=== PATIENT | female | born 1985 | race Caucasian/White ===

== ENCOUNTER → 2023-09-30 15:14 | Outpatient (REF) | payer OTHER, SELFPAY | LOC: HWRAD 15:14 | PROVIDERS: ATTENDING PHYSICIAN Physician Assistant Medical | DX: J11.1 Influenza due to unidentified influenza virus with other respiratory manifestations (principal) | CPT/HCPCS: 71046 ==

== ENCOUNTER → 2024-04-08 17:35 | Outpatient (REF) | payer OTHER, SELFPAY | LOC: MRI 3T 17:35 | PROVIDERS: ATTENDING PHYSICIAN Electrodiagnostic Medicine; FAMILY PHYSICIAN Physician Assistant Medical | DX: G35 Multiple sclerosis (principal) | CPT/HCPCS: 72157; A9575 ==

== ENCOUNTER → 2024-05-10 19:11 | Outpatient (REF) | payer OTHER, SELFPAY | LOC: MRI 19:11 | PROVIDERS: ATTENDING PHYSICIAN Electrodiagnostic Medicine; FAMILY PHYSICIAN Physician Assistant Medical | DX: G35 Multiple sclerosis (principal) | CPT/HCPCS: 70551; 72141 ==

== ENCOUNTER 2025-05-02 10:38 | Emergency (ER) | payer OTHER, SELFPAY ==
[2025-05-02 10:40] VITALS: BP 178/95
--- NOTE | 2025-05-02 11:57 | ED.GENMED ---
History of Present Illness
General
Chief Complaint: Back Pain
Source: patient
Exam Limitations: none
Time Seen by Provider: 05/02/25 11:27
Nursing documentation reviewed up to this point in time: agreed with
History of Present Illness
History of Present Illness:
Patient is a 39-year-old female who presents emergency department for evaluation of left flank pain. She started feeling unwell on Friday including urinary frequency as well as body aches and left lower back pain. She was seen at urgent care and
diagnosed with a UTI/possible kidney infection and started on a course of ciprofloxacin. Patient states that she has had improvement in her urinary symptoms, however today she started to feel �lousy' again. She has persistent pain in the left
flank/left lower back which she describes as a constant �ache'.
She has not had any fevers today. No nausea, vomiting, hematuria. She denies any abnormal vaginal bleeding or discharge. No concern for STDs. No chest pain or shortness of breath.
Past History
Past History
ED Past Medical History: Other (MS presumably relapsing remitting, Numbness left hand)
ED Past Surgical History: None
Social History
Tobacco: Non-smoker
Alcohol: None
Drug: None
Personal:
Living: with family
Employment: Employed
Family History
Family History: Other (reviewed and noncontributory)
Review of Systems
Review of Systems
Allergies reviewed?: Yes
All Other Systems: ROS reviewed and negative except as documented in HPI and ROS
Phy Exam
Physical Exam
Physical Exam:
Vitals: Hypertensive, otherwise stable vital signs. Afebrile.
General: Patient is well appearing, nontoxic appearing
Skin: Warm and dry, no rashes or lesions
Head: Normocephalic, atraumatic
Eyes: Sclera nonicteric.
Throat: Protecting airway
Neck: Normal ROM, no cervical spine tenderness, no meningismus
Cardiac: Regular rate and rhythm, no murmurs.
Pulm: Normal respiratory effort, no wheezes, rales, rhonchi heard on exam
.
Abdomen: Abdomen soft and nontender. Mild reproducible left flank pain. No ecchymosis or rash.
Extremities: No evidence of cyanosis or edema
Neuro: AAOx3. Grossly intact.
Psychiatric: Normal affect.
Course
Orders/Labs/Results
Orders:
Orders
05/02/25 11:47
CT Abd/pelvis W Iv Cont Urgent
Comment: recently treated UTI
Reason For Exam: Left flank pain
0.9% Sodium Chloride 1000 ml [Nss] 1,000 ml IV BOLUS
Ketorolac [Toradol] 15 mg IV NOW STA
Test Result ONCE
05/02/25 12:21
Complete Blood Count/With Diff Urgent
Comprehensive Metabolic Panel Urgent
HCG, Serum Qualitative Screen Urgent
Urinalysis Reflex To Culture Urgent
Date Specimen was Collected: 05/02/25
Time Specimen was Collected: 11:49
Abnormal Lab Results
05/02/25
12:21
Calcium 10.3 H mg/dl
(8.4-10.2)
05/02/25 12:21
05/02/25 12:21
Vital Signs
Initial and Last Documented VS:
Initial Vital Signs
Temp Pulse Resp BP Pulse Ox
98.2 F 90 16 178/95 98
05/02/25 10:40 05/02/25 10:40 05/02/25 10:40 05/02/25 10:40 05/02/25 10:40
Last Documented Vital Signs
Temp Pulse Resp BP Pulse Ox
98.2 F 89 18 136/91 100
05/02/25 10:40 05/02/25 14:10 05/02/25 14:10 05/02/25 14:10 05/02/25 14:10
MDM/Problems Addressed
Differential Diagnosis Includes:
Not limited to: Viral illness, cystitis, pyelonephritis, renal colic, muscular strain, etc
MDM/Problems Addressed:
39-year-old female with persistent left flank/low black pain in setting of current treatment for UTI. She is on day #2 of ciprofloxacin. No new fever, body ache, dysuria or hematuria.
Vitals and physical exam as above.
Patient nontoxic appearing. Abdomen benign. She does have some mild reproducible tenderness in left flank region however, no ecchymosis or rash. Abdomen soft and nontender. Cardio/pulmonary assessment unremarkable.
Differential as above.
ED plan: labs, UA, CT scan abdomen/pelvis w/ IV contrast. Will give IV fluids, treat symptoms w/ Toradol, and reassess.
Update: CBC and chemistry without abnormalities. UA without any evidence of RBCs or infection however, patient is currently on abx. CT scan without evidence of obstructing ureteral calculi or acute process. Incidental ovarian cyst as well as
possible reactive lymph nodes in groin noted. Discussed at length of patient and while I did not feel contributing to todays symptoms she was advised to f/u with OBG/primary care for further imaging and to ensure resolves.
Ultimately � work up in ED negative. Patient remains nontoxic appearing. Her symptoms improved with Toradol. Feel stable for discharge home. Advised to complete course of ciprofloxacin and follow up with primary care to ensure symptoms resolve.
Patient comfortable w/ plan. Return precautions discussed.
Chronic conditions affecting care:
N/A
Acute Exacerbation and/or Progression of Chronic Illness:
N/A
*Radiology
Radiology exam reviewed: radiology read reviewed
*Pulse Oximetry
SaO2: 98
Oxygen Mode of Delivery: Room air
Patient hypoxic: no
*EKG
Interpreted by ED Provider?: NA
*Applications Chemist Interpretation
Rate: Applications Chemist- N/A
*Critical Care Note
Total Time (30-74mins, 75-104mins- exclusive of procedures): Not Applicable
ED Attending Note
-
Portions of this chart may have been created with voice recognition software.� Occasional wrong word or��sound alike� substitutions may have occurred due to the inherent limitations of voice recognition software.
Discharge Plan
Departure
Patient Disposition: Home (Routine Discharge)
Date of Disposition: 05/02/25
Time of Disposition: 15:09
Patient with high blood pressure during this ER visit?: Yes
Condition: Good
Discharge Problem:
Left flank pain
Instructions: Low Back Pain (DC), Urinary tract infection in adults - ED (DC), BLOOD PRESSURE
Prescriptions:
No Action
dextroamphetamine-amphetamine 10 mg tablet
10 mg PO BID
Patient Comments:
08/20/2023: last filled 07/29/23, 60 tabs for 30 days from [id number]
acetaminophen 500 mg Tablet
500 mg PO Q6H PRN (Reason: mild pain/fever)
glatiramer [Copaxone] 40 mg/mL Syringe
40 mg SC MOWEFR
oseltamivir 75 mg Capsule
75 mg PO BID Qty: 6 0RF
cefdinir 300 mg Capsule
300 mg PO Q12 Qty: 14 0RF
Rx Instructions:
Take first dose on 08/23/23
cholecalciferol (vitamin D3) 50 mcg (2,000 unit) Tablet
50 mcg PO DAILY Qty: 30 0RF
Referrals:
Elvira Henry PA-C [Family Provider, Family Practice] - Follow up in 5-7 days
Activity Restrictions/Additional Instructions:
RETURN TO THE EMERGENCY DEPARTMENT ANY FEVER, WORSENING BACK/ABDOMINAL PAIN, NAUSEA/VOMITING, DIFFICULTIES URINATING, CHEST PAIN OR SHORTNESS OF BREATH, WORSENING IN CURRENT SYMPTOMS, OR ANY CONCERNS
- As discussed�your lab work and urinalysis showed no acute abnormalities.
- Your CT scan did show a left ovarian cyst as well as lymph nodes in your groin area. Please follow-up with your [facility] for dedicated pelvic ultrasound of cyst as well as to ensure that lymph nodes resolved.
- Please complete the course of ciprofloxacin as prescribed urgent care. You can take Tylenol/Motrin as needed for pain. It is important to stay well-hydrated.
- Follow-up with PCP and [facility].
Monitor your symptoms closely and return to the emergency department worsening/new symptoms or any other concerns
Interventions
Interventions:
*Risk Screen - Suicide Last Done: 05/02/25 10:40
*Neglect/Abuse Screening Last Done: 05/02/25 10:40
*Nursing Disposition Last Done: 05/02/25 15:30
ED-Musculoskeletal Assessment Last Done: 05/02/25 12:25
Discharge Date and Time
Discharge Date/Time: 05/02/25 15:43
Print Language: ARABIC
[2025-05-02] MEDS: TORADOL 15 MG IV (12:05)
[2025-05-02] MEDS: NSS 1000 IV (12:05)
[2025-05-02 12:35] LABS: Hematocrit 41.4 % (37.0-47.0); Hemoglobin 14.0 g/dL (12.0-16.0); Mean Corp Hgb Conc. 33.8 g/dL (33.0-37.0); Mean Corpuscular Volume 88.3 fL (81.0-99.0); Nucleated Red Blood Cells % 0 %; Platelet Count 247 10^3/uL (130-400); Red Cell Dist. Width 12.9 % (11.5-14.5)
[2025-05-02 12:41] LABS: HCG, Serum Qualitative Screen Negative
[2025-05-02 12:45] LABS: ALT (SGPT) 25 U/L (0-35); AST (SGOT) 26 U/L (14-36); Albumin 4.9 g/dl (3.5-5.0); Alkaline Phosphatase 73 U/L (38-126); Blood Urea Nitrogen 8 mg/dl (7-17); Calcium 10.3 mg/dl (8.4-10.2); Carbon Dioxide 24 mmol/L (22-30); Chloride 104 mmol/L (98-107); Glucose 85 mg/dl (70-99); Potassium 3.9 mmol/L (3.5-5.1); Sodium 137 mmol/L (135-145); Total Protein 7.6 g/dl (6.3-8.2); eGFR > 60.00
[2025-05-02 12:50] LABS: Urine Character Clear (Clear)
[2025-05-02 14:10] VITALS: BP 136/91
== END 2025-05-02 15:43 | disposition home or self-care (01) ==
LOC: EMR 10:38
PROVIDERS: Physician Assistant; EMERGENCY PHYSICIAN Student in an Organized Health Care Education/Training Program; FAMILY PHYSICIAN Physician Assistant Medical
DX: R10.9 Unspecified abdominal pain (principal); N83.209 Unspecified ovarian cyst, unspecified side; G35 Multiple sclerosis
CPT/HCPCS: 99284; 96360; 74177; 80053; 81003; 84703; 85025; Q9967